=== PATIENT | female | born 1960 | race Caucasian/White ===

== ENCOUNTER 2020-12-20 06:38 | Outpatient (CLI) | payer BC, SELFPAY ==
--- NOTE | 2020-12-20 06:58 | ECHO_ITS ---
Patient Info Name: Sabrina Barrera Age: 60 years : 1960 Gender: Female Ht: 63 in Wt: 292 lbs BSA: 2.51 m2 HR: 95 bpm BP: 116 / 88 mmHg Technical Quality: Good Exam Date: 12/20/2020 7:16 AM Exam Location: [facility] Patient Status: Outpatient Admit Date: 12/20/2020 Staff Ordering Physician: Son Quiñones DO Postal Transportation Clerk: Joe Hyatt RDCS, RT Attending Provider: Son Quiñones DO Referring Physician: Ishmael CORTEZ; Exam Type: CA echo doppler color flow Study Info Indications I48.1 - Persistent atrial fibrillation Complete two-dimensional, color flow and Doppler transthoracic echocardiogram is performed. Strain analysis performed. Summary 1. Complete two-dimensional, color flow and Doppler transthoracic echocardiogram is performed. 2. Left ventricular chamber dimension is mildly enlarged. 3. Left ventricular systolic function is preserved, estimated at 50-55%. 4. The left ventricular diastolic function is normal. 5. E/e' 6 is not elevated. 6. Atrial fibrillation. 7. Left atrial chamber dimension is mildly enlarged. 8. There is mild mitral valve regurgitation. 9. There is mild tricuspid valve regurgitation. 10. No pulmonary hypertension, estimated pulmonary arterial systolic pressure is 21 mmHg. Left Ventricle E/e' 6 is not elevated. Atrial fibrillation. Left ventricular systolic function is preserved, estimated at 50-55%. Left ventricular chamber dimension is mildly enlarged. The left ventricular diastolic function is normal. Right Ventricle Right ventricular systolic function is normal with normal TAPSE 1.7 cm. Right ventricular chamber dimension is normal. Left Atria Left atrial chamber dimension is mildly enlarged. Right Atria Right atrial chamber dimension is normal. Aortic Valve The aortic valve is trileaflet. There is no aortic valve stenosis. There is no aortic valve regurgitation. Pulmonic Valve There is no pulmonic regurgitation. Mitral Valve There is no mitral valve stenosis. There is mild mitral valve regurgitation. Tricuspid Valve There is mild tricuspid valve regurgitation. No pulmonary hypertension, estimated pulmonary arterial systolic pressure is 21 mmHg. Pericardium/Pleural There is no pericardial effusion. Inferior Vena Cava Normal inferior vena cava with >50% collapse upon inspiration consistent with normal right atrial pressure, 5 mmHg. Aorta The aortic root size at the sinus of Valsalva is normal. Left Ventricular Outflow Tract Name Value Normal LVOT 2D LVOT Diameter 2.0 cm LVOT Doppler LVOT Peak Gradient 4 mmHg LVOT Mean Gradient 2 mmHg LVOT VTI 21 cm LVOT VTI/AV VTI Ratio 0.8 LVOT Stroke Volume 64 ml LVOT CO 6.3 l/min LVOT CI 2.5 l/min/m2 Mitral Valve Name Value Normal
== END 2020-12-20 06:39 | disposition home or self-care (01) ==
LOC: ANHCARD 06:45
PROVIDERS: PCP Internal Medicine; Visit Provider Internal Medicine Cardiovascular Disease
DX: I48.91 Unspecified atrial fibrillation (principal); I34.0 Nonrheumatic mitral (valve) insufficiency; I36.1 Nonrheumatic tricuspid (valve) insufficiency
CPT/HCPCS: 93306

== ENCOUNTER 2021-12-13 10:20 | Inpatient (IN) | payer BC, SELFPAY ==
[2021-12-13] VITALS (38 sets, daily range): BP systolic 130–155; BP diastolic 75–89; PULSE 98–133; RESP 16–28; TEMP 36–37.2; O2SAT 85–97; BMI 50.2
--- NOTE | ~2021-12-13 | XR_ITS ---
EXAMINATION: XR chest 2V DATE: 12/13/2021 11:15 INDICATION: Increasing shortness of breath TECHNIQUE: PA and lateral views of the chest are obtained. COMPARISON: None available FINDINGS: There are patchy opacities of the mid and lower lung zones. There appears to be a small nod ular component in the left midlung zone. There is no pleural effusion or pneumothorax. The cardiomedi astinal silhouette is normal. There is moderate thoracic spondylosis. IMPRESSION: 1. Patchy opacities of the mid and lower lung zones, consistent with pneumonia and/or pulmonary edema . Recommend followup radiographs in 10-14 days after appropriate therapy to evaluate for improvement/ resolution. Reviewed, dictated and finalized at location A. IMPRESSION: 1. Patchy opacities of the mid and lower lung zones, consistent with pneumonia and/or pulmonary edema. Recommend followup radiographs in 10-14 days after appr opriate therapy to evaluate for improvement/resolution.
--- NOTE | 2021-12-13 10:27 | ECG_ITS ---
Measurements Intervals [place] Rate: 112 P: AL: 0 QRS: -10 QRSD: 92 T: 77 QT: 319 QTc: 437 Interpretive Statements ATRIAL FIBRILLATION WITH RAPID VENTRICULAR RESPONSE LOW QRS VOLTAGE IN PRECORDIAL LEADS BORDERLINE R WAVE PROGRESSION, ANTERIOR LEADS CONSIDER INFERIOR INFARCT, AGE INDETERMINATE BORDERLINE ST-T WAVE ABNORMALITY- HIGH LATERAL LEADS BASELINE ARTIFACT- I, II, III, AVR, AVL,A VF ABNORMAL ECG Electronically Signed On 12-13-2021 10:38:01 CDT by Son Quiñones D.O.
[2021-12-13] MEDS: IPRATROPIUM BR 0.02% INH SOLN 0.5 MG/2.5 ML VIAL INHALATION ×2 (10:50→20:38)
[2021-12-13] MEDS: ALBUTEROL SULFATE NEB 2.5 MG/3 ML INH 5 MG INHALATION ×2 (10:50→20:38)
[2021-12-13 11:01] LABS: Basophils Absolute Auto 0.1 K/mm3 (0.0-0.1); Basophils Percent Auto 0.4 % (0.2-1.2); Eosinophils Percent Auto 0.3 % (0-4.4); Immature Granulocyte Absolute 0.07 K/mm3 (0.00-0.031); Immature Granulocyte Percent A 0.6 % (0-0.5); Lymphocytes Absolute Auto 1.46 K/mm3 (0.9-3.2); Lymphocytes Percent Auto 12.4 % (18.3-44.2); Mean Corpuscular HGB Conc 33.3 g/dl (32-36); Mean Corpuscular Hemoglobin 30.7 pg (26-34); Mean Corpuscular Volume 92.2 fl (80-100); Mean Platelet Volume 11.6 fl (7.4-10.4); Monocytes Absolute Auto 1.1 K/mm3 (0.1-0.6); Monocytes Percent Auto 9.1 % (2.6-8.5); Neutrophils Absolute Auto 9.1 K/mm3 (1.3-6.7); Neutrophils Percent Auto 77.2 % (45.5-73.1); Platelet Count Result 221 k/mm3 (150-375); Red Blood Count 4.88 M/mm3 (4.2-5.4); Red Cell Distribution Width 14.6 % (11.5-14.5); White Blood Count 11.8 K/mm3 (4.5-10.0)
[2021-12-13 11:16] LABS: Alanine Aminotransferase 28 U/L (6-35); Albumin Level 4.1 g/dL (3.5-5.1); Alkaline Phosphatase 68 U/L (38-126); Anion Gap 9 mmol/L (8-16); Aspartate Amino Transferase 46 U/L (14-36); Bilirubin,Total 0.7 mg/dL (0.2-1.3); Blood Urea Nitrogen 15 mg/dL (7-17); Calcium 8.4 mg/dL (8.4-10.2); Carbon Dioxide 26 mmol/L (22-30); Chloride 96 mmol/L (98-107); Estimated CRCL calculation 78 ml/min; Estimated Glomerular Filt Rate 56; Glucose 173 mg/dL (65-110); Potassium 4.4 mmol/L (3.4-5.0); Sodium 131 mmol/L (137-145)
[2021-12-13 11:22] LABS: NT Pro B Type Natriuretic Pept 971 pg/mL (5-100)
[2021-12-13 11:29] LABS: INR 1.4; Partial Thromboplastin Time 37.9 SECONDS (22.3-36.8); Prothrombin Time 16.6 Seconds (11.1-14.7)
[2021-12-13 11:38] LABS: SARS-CoV-2 RNA PCR Negative
--- NOTE | 2021-12-13 13:22 | ED.SOB ---
HPI - SOB/Dyspnea General Chief Complaint: Shortness of Breath/Dyspnea Stated Complaint: SOB Time Seen by Provider: 12/13/21 10:28 History of Present Illness HPI Narrative: Patient is a 61-year-old female who presents ER with shortness of breath and hypoxia. Patient reports she is recently been taking care of her mother who has pneumonia. Over the weekend she went camping and by the time the week and ended she was extremely short of breath symptoms feel congestion in her chest. No chest pain or chest pressure. Related Data Home Medications Medication Instructions Recorded Confirmed warfarin 3 mg PO DAILY 12/13/21 12/13/21 Allergies Allergy/AdvReac Type Severity Reaction Status Date / Time tetracycline Allergy Unknown Hives Verified 12/13/21 18:57 Review of Systems Review of Systems: All systems reviewed & are unremarkable except as noted in HPI and below Constitutional: Constitutional: Reports chills, Reports fatigue and Reports fever(s) ENT: Denies nasal congestion and Denies sore throat Cardiovascular: Cardiovascular: Denies chest pain, Denies rapid heart rate and Denies radiating jaw, neck or arm pain Respiratory: Respiratory: Reports cough, Reports dyspnea and Reports wheezing Gastrointestinal: Gastrointestinal: Denies abdominal pain, Denies nausea and Denies vomiting Genitourinary: Genitourinary: Denies nocturia and Denies dysuria [facility] Past Medical History Medical History (Updated 12/13/21 @ 19:10 by Mario Mcmullen MD) Atrial fibrillation Dyslipidemia Hypersomnia Hypertension Surgical History Surgical History (Updated 12/13/21 @ 13:23 by Mario Mcmullen MD) History of tonsillectomy Family History Family History (Updated 12/13/21 @ 18:49 by Cheryl Crabtree RN) Mother Family history of malignant neoplasm Father Hypertension Social History Social History Smoking status: Former smoker Smoking end date: 08/06/80 Alcohol intake: never Substance use: never Spiritual care concerns: No Exam Narrative: GENERAL: Well-appearing, obese, and in no acute distress. HEAD: Normocephalic, atraumatic. EYES: PERRL and EOMI. ENT: Mucous membranes moist. CHEST: Coarse Rales worse anterior lung cleary as opposed to posterior. No respiratory distress. HEART: Regular rate and rhythm. Normal peripheral pulses. ABDOMEN: Soft, nontender, nondistended. EXTREMITIES: Normal range of motion. No edema. SKIN: Warm, dry, no rash. NEURO: Alert and oriented x3. PSYCH: Normal mood and affect. Course Course Emergency Course: Patient informed of results. Ceftriaxone azithromycin for antibiotics. Patient was in persistent atrial flutter with RVR associated with receiving some diltiazem. Admit to IMU. Patient's oxygen dependent. Vital Signs Vital signs: Vital Signs Pulse Rate 116 H 12/13/21 10:31 Respiratory Rate 16 12/13/21 10:31 Blood Pressure 130/80 12/13/21 10:31 Pulse Oximetry 95 12/13/21 10:31 Temperature 98.9 F 12/13/21 10:36 Pulse Rate 112 H 12/13/21 18:15 Respiratory Rate 17 12/13/21 18:15 Blood Pressure 155/89 H 12/13/21 18:02 Pulse Oximetry 93 12/13/21 18:02 MDM - SOB/Dyspnea Lab Data Result diagrams: 12/13/21 10:45 12/13/21 10:45 Labs: Lab Results 12/13/21 12/13/21 12/13/21 Range/Units 10:45 10:45 10:45 WBC 11.8 H (4.5-10.0) K/mm3 RBC 4.88 (4.2-5.4) M/mm3 Hgb 15.0 (12.0-15.0) g/dL Hct 45.0 (37.0-47.0) % MCV 92.2 (80-100) fl MCH 30.7 (26-34) pg MCHC 33.3 (32-36) g/dl RDW 14.6 H (11.5-14.5) % Plt Count 221 (150-375) k/mm3 MPV 11.6 H (7.4-10.4) fl Immature Gran % (Auto) 0.6 H (0-0.5) % Neut % (Auto) 77.2 H (45.5-73.1) % Lymph % (Auto) 12.4 L (18.3-44.2) % [place] % (Auto) 9.1 H (2.6-8.5) % Eos % (Auto) 0.3 (0-4.4) % Baso % (Auto) 0.4 (0.2-1.2) % Lymph # (Auto) 1
--- NOTE | 2021-12-13 13:30 | PC.NURSE ---
pt taken of 2l nc. pt desats to 80's. audible wheezing noted. placed again on oxygen. edp aware.
--- NOTE | 2021-12-13 16:34 | PM.IMHP ---
H&P: HPI History of Present Illness Date/Time: Patient requires inpatient monitoring with expected length of stay to exceed 2 midnights for management of care. 12/13/21 16:34 Chief Complaint: Shortness of breath Narrative: Ms. Barrera is a 61-year-old female who presented emergency room with complaints of increasing shortness of breath and cough since Sunday. Patient states that she was taking care of her mother on and Sunday who was diagnosed with pneumonia and then she went camping over the weekend and began having a cough, sinus congestion, and green sputum production. Patient states last evening she had sweating throughout the night, but never checked her temperature. Upon evaluation emergency room patient was noted to have O2 saturations in the 80s on room air. Patient was then placed on oxygen at 2 L per nasal cannula with improvement. Patient denies any chest discomfort, lightheadedness, dizziness, syncopal, or near syncopal episodes. Patient states that her fever is subjective could she never checked her temperature. Patient states her only past medical history is atrial fibrillation. Patient states that she takes diltiazem and Coumadin for her atrial fibrillation. Patient states she has been taking all medications without any difficulty. Patient denies any lung history such as COPD. Review of Systems Review of Systems: A 12 point review of systems was completed patient all pertinent positive and negative per HPI the remainder are unremarkable. [facility] Past Medical History Medical History (Updated 12/13/21 @ 16:39 by Deanna Noble APRN) Atrial fibrillation Dyslipidemia Hypersomnia Hypertension Surgical History Surgical History (Updated 12/13/21 @ 13:23 by Mario Mcmullen MD) History of tonsillectomy Family History Family History Other Family history of malignant neoplasm Hypertension Social History Social History Smoking status: Never smoker Smoking end date: 08/06/80 Alcohol intake: current Meds Home Medications and Allergies Home Medications Medication Instructions Recorded Confirmed Type diltiazem HCl 360 mg capsule,24 360 mg PO DAILY #30 cap 10/18/21 10/18/21 Rx hr,extended release warfarin 3 mg PO DAILY 12/13/21 History Allergies Allergy/AdvReac Type Severity Reaction Status Date / Time tetracycline Allergy Unknown Urticaria Verified 12/13/21 10:39 Vital Signs Vital Signs - 24 hr 12/13/21 10:31 12/13/21 10:32 12/13/21 10:34 Temperature Pulse Rate 116 H 103 H Respiratory Rate 16 24 H Blood Pressure 130/80 136/82 Pulse Oximetry 95 85 L 94 12/13/21 10:35 12/13/21 10:36 12/13/21 10:40 Temperature 37.2 C Pulse Rate 115 H Respiratory Rate Blood Pressure Pulse Oximetry 94 12/13/21 10:50 12/13/21 11:00 12/13/21 11:19 Temperature Pulse Rate 109 H 117 H 122 H Respiratory Rate 23 H 27 H 18 Blood Pressure Pulse Oximetry 96 97 90 12/13/21 11:30 12/13/21 11:45 12/13/21 12:00 Temperature Pulse Rate 133 H 112 H 112 H Respiratory Rate 27 H 17 21 H Blood Pressure Pulse Oximetry 92 94 95 12/13/21 12:26 12/13/21 12:30 Temperature Pulse Rate 107 H 112 H Respiratory Rate 19 23 H Blood Pressure Pulse Oximetry 94 94 Exam Narrative: Constitutional: Patient is a 61-year-old morbidly obese female who is in mild respiratory distress. Patient is alert and oriented x3 HEENT: Moist mucous membranes. No scleral icterus. No lymphadenopathy. Neck: No carotid bruits noted no JVD noted Lungs: Patient's lung sounds are decreased with expiratory wheezes noted throughout.. Cardiovascular: Apical pulse is irregularly irregular and tachycardic with S1 and variable S2, no S3 or S4.. Abdomen: Soft, round, and nontender. No palpable masses. Extremities: No edema. Nontender. Skin: No rashes or
[2021-12-13] MEDS: methylPREDNISolone SOD SUCC 125 MG VIAL IV PUSH (17:03)
[2021-12-13] MEDS: dilTIAZem HCl INJ 25 MG/5 ML VIAL 10 MG IV PUSH (17:03)
[2021-12-13] MEDS: WARFARIN (*PBKC) 5 MG TABLET PO (17:19)
[2021-12-13] MEDS: FUROSEMIDE INJ 40 MG/4 ML VIAL IV PUSH (17:47)
--- NOTE | 2021-12-13 18:45 | ADMGEN ---
This patient, Sabrina Barrera, was admitted to [facility] Surg Room 310-01. Patient/family oriented to hospital policies and general routines including ID bracelet, bed and alarms, visiting hours, pain management, procedures, bathroom and other care routines, personal items, smoking policy, room service/diet, and visiting hours. Information on how to activate the Rapid Response Team has been discussed. Patient/Family are encouraged to report perceived risks to care and to ask questions if they do not understand what they are told or what they should do.
[2021-12-13] MEDS: ACETAMINOPHEN 325 MG TABLET 650 MG PO (20:37)
[2021-12-13 21:00] LABS: INR 1.5; Prothrombin Time 17.5 Seconds (11.1-14.7)
[2021-12-13] MEDS: methylPREDNISolone SOD SUCC 125 MG VIAL 60 MG IV PUSH (23:04)
[2021-12-14] VITALS (15 sets, daily range): BP systolic 111–166; BP diastolic 66–88; PULSE 54–130; RESP 16–20; TEMP 35.8–36.1; O2SAT 90–95
[2021-12-14] MEDS: ALBUTEROL SULFATE NEB 2.5 MG/3 ML INH 5 MG INHALATION ×4 (02:25→19:42)
[2021-12-14] MEDS: IPRATROPIUM BR 0.02% INH SOLN 0.5 MG/2.5 ML VIAL INHALATION ×4 (02:25→19:42)
[2021-12-14] MEDS: methylPREDNISolone SOD SUCC 125 MG VIAL 60 MG IV PUSH ×2 (05:07→12:18)
[2021-12-14 06:39] LABS: INR 1.7; Prothrombin Time 19.8 Seconds (11.1-14.7)
[2021-12-14 06:41] LABS: Basophils Percent Auto 0.2 % (0.2-1.2); Hematocrit 46.2 % (37.0-47.0); Hemoglobin 14.9 g/dL (12.0-15.0); Immature Granulocyte Absolute 0.06 K/mm3 (0.00-0.031); Immature Granulocyte Percent A 0.6 % (0-0.5); Lymphocytes Absolute Auto 0.82 K/mm3 (0.9-3.2); Lymphocytes Percent Auto 8.1 % (18.3-44.2); Mean Corpuscular HGB Conc 32.3 g/dl (32-36); Mean Corpuscular Hemoglobin 30.5 pg (26-34); Mean Corpuscular Volume 94.7 fl (80-100); Mean Platelet Volume 12.4 fl (7.4-10.4); Monocytes Absolute Auto 0.3 K/mm3 (0.1-0.6); Monocytes Percent Auto 2.9 % (2.6-8.5); Neutrophils Absolute Auto 8.9 K/mm3 (1.3-6.7); Neutrophils Percent Auto 88.2 % (45.5-73.1); Platelet Count Result 200 k/mm3 (150-375); Red Blood Count 4.88 M/mm3 (4.2-5.4); Red Cell Distribution Width 14.2 % (11.5-14.5); White Blood Count 10.1 K/mm3 (4.5-10.0)
[2021-12-14 09:07] LABS: Alanine Aminotransferase 33 U/L (6-35); Albumin Level 4.1 g/dL (3.5-5.1); Alkaline Phosphatase 80 U/L (38-126); Aspartate Amino Transferase 44 U/L (14-36); Bilirubin,Total 0.3 mg/dL (0.2-1.3)
[2021-12-14] MEDS: METOPROLOL TARTRATE INJ 5 MG/5 ML VIAL IV PUSH (09:29)
[2021-12-14] MEDS: dilTIAZem HCL CD 180 MG CAP.ER.24H 360 MG PO (09:30)
--- NOTE | 2021-12-14 10:45 | PM.IMPN ---
Progress Note: A&P Assessment and Plan (1) Pneumonia: Code(s): J18.9 - Pneumonia, unspecified organism Status: Acute Assessment and Plan: Chest x-ray does show pneumonia Continue azithromycin and Rocephin Significant wheezing noted on exam nebulizer treatments IV steroids 60mg IV Q6H, decreased to 40mg IV Q4H Supplemental oxygen wean oxygen to keep saturations greater than 93% Sputum culture pending Blood culture pending (2) Hyperglycemia: Code(s): R73.9 - Hyperglycemia, unspecified Status: Acute Assessment and Plan: Blood glucose currently 289 History of hyperglycemia Recently given Novalog in her primary care's office Receiving steroids during hospitalization Accu Chek AC/HS ISS since she is getting Steroids Trend labs (3) Atrial fibrillation: Code(s): I48.91 - Unspecified atrial fibrillation Status: Acute Assessment and Plan: Heart rate elevated EKG showed that Afib RVR One dose of metoprolol IV given Cardizem PO 360mg Q24 hour Continue Coumadin and trend INR Tele monitor Trend HR Adjust therapy as indicated Time Spent With Patient Time with patient: Greater than 35 minutes Subjective Date/time seen: 12/14/211044 Interval history: 12/13/21 16:34 Narrative: Ms. Barrera is a 61-year-old female who presented emergency room with complaints of increasing shortness of breath and cough since Sunday. Patient states that she was taking care of her mother on and Sunday who was diagnosed with pneumonia and then she went camping over the weekend and began having a cough, sinus congestion, and green sputum production. Patient states last evening she had sweating throughout the night, but never checked her temperature. Upon evaluation emergency room patient was noted to have O2 saturations in the 80s on room air. Patient was then placed on oxygen at 2 L per nasal cannula with improvement. Patient denies any chest discomfort, lightheadedness, dizziness, syncopal, or near syncopal episodes. Patient states that her fever is subjective could she never checked her temperature. Patient states her only past medical history is atrial fibrillation. Patient states that she takes diltiazem and Coumadin for her atrial fibrillation. Patient states she has been taking all medications without any difficulty. Patient denies any lung history such as COPD. 12/14/21 1045 Patient stated that she is feel better than she was yesterday. She is still on oxygen. She was also having problems with palpitations and stated that she knew her afib was acting up. She did have a heart rate in the 150s. Gave her one time dose of metoprolol and restarted her Cardizem. She stated that it did help and that she noticed that her heart rate has went back down. She denies and chest pain, shortness of breath, nausea, vomiting, diarrhea. She did state that she is wheezing and has a productive cough. She also stated that her appetite is getting worse, and that she is not eating much. She does get dizzy when she stands up. He main complaint is that she is just really exhausted. Review of Systems Review of Systems: All systems reviewed & are unremarkable except as noted in HPI and below Exam Const: General: cooperative, well developed, alert, awake and acute distress mild and respiratory Nutritional Appearance: well nourished, obese and overweight Orientation/consciousness: oriented to person, oriented to place, oriented to time and patient oriented x3 Limitations: no limitations HENMT: Head: normal to inspection Ears: hearing grossly normal bilaterally General nose exam: Normal external nose present Mouth: Yes Normal oral and palatal mucosa present, Yes lip normal and Yes tongue normal Teeth and gingiva: abnormal tooth and associated gingiva and poor dentition Eyes: General: appearance normal, both eyes and all related struc
[2021-12-14 13:03] LABS: Anion Gap 9 mmol/L (8-16); Blood Urea Nitrogen 14 mg/dL (7-17); Calcium 8.8 mg/dL (8.4-10.2); Carbon Dioxide 29 mmol/L (22-30); Chloride 94 mmol/L (98-107); Estimated CRCL calculation 86 ml/min; Estimated Glomerular Filt Rate > 60; Glucose 289 mg/dL (65-110); Magnesium 2.3 mg/dL (1.6-2.3); Potassium 3.8 mmol/L (3.4-5.0); Sodium 132 mmol/L (137-145)
[2021-12-14] MEDS: FUROSEMIDE INJ 40 MG/4 ML VIAL IV PUSH (14:23)
[2021-12-14 16:42] LABS: Glucose Point of Care 355 mg/dl (65-105)
[2021-12-14] MEDS: INSULIN ASPART (*BKC) 100 UNITS/ML SUB-Q (16:57)
[2021-12-14] MEDS: WARFARIN (*PBKC) 3 MG TABLET PO (16:58)
[2021-12-14] MEDS: methylPREDNISolone SOD SUCC 40 MG VIAL IV PUSH ×2 (16:58→21:38)
[2021-12-14 22:11] LABS: Glucose Point of Care 280 mg/dl (65-105)
[2021-12-14] MEDS: ACETAMINOPHEN 325 MG TABLET 650 MG PO (23:36)
[2021-12-15] VITALS (13 sets, daily range): BP systolic 104–111; BP diastolic 60–67; PULSE 82–100; RESP 16–18; TEMP 35.7–36.6; O2SAT 88–100
[2021-12-15] MEDS: methylPREDNISolone SOD SUCC 40 MG VIAL IV PUSH ×4 (00:15→13:39)
[2021-12-15] MEDS: ALBUTEROL SULFATE NEB 2.5 MG/3 ML INH 5 MG INHALATION ×4 (02:02→20:28)
[2021-12-15] MEDS: IPRATROPIUM BR 0.02% INH SOLN 0.5 MG/2.5 ML VIAL INHALATION ×4 (02:03→20:28)
[2021-12-15 07:12] LABS: INR 2.4; Prothrombin Time 25.5 Seconds (11.1-14.7)
[2021-12-15 07:13] LABS: Basophils Absolute Auto 0.1 K/mm3 (0.0-0.1); Basophils Percent Auto 0.3 % (0.2-1.2); Hematocrit 43.3 % (37.0-47.0); Hemoglobin 14.4 g/dL (12.0-15.0); Immature Granulocyte Absolute 0.12 K/mm3 (0.00-0.031); Immature Granulocyte Percent A 0.7 % (0-0.5); Lymphocytes Absolute Auto 1.42 K/mm3 (0.9-3.2); Lymphocytes Percent Auto 8.4 % (18.3-44.2); Mean Corpuscular HGB Conc 33.3 g/dl (32-36); Mean Corpuscular Hemoglobin 30.3 pg (26-34); Mean Platelet Volume 12.4 fl (7.4-10.4); Monocytes Absolute Auto 0.6 K/mm3 (0.1-0.6); Monocytes Percent Auto 3.8 % (2.6-8.5); Neutrophils Absolute Auto 14.6 K/mm3 (1.3-6.7); Neutrophils Percent Auto 86.8 % (45.5-73.1); Platelet Count Result 247 k/mm3 (150-375); Red Blood Count 4.76 M/mm3 (4.2-5.4); Red Cell Distribution Width 13.9 % (11.5-14.5); White Blood Count 16.8 K/mm3 (4.5-10.0)
[2021-12-15 07:48] LABS: Alanine Aminotransferase 39 U/L (6-35); Albumin Level 3.7 g/dL (3.5-5.1); Alkaline Phosphatase 61 U/L (38-126); Anion Gap 8 mmol/L (8-16); Aspartate Amino Transferase 58 U/L (14-36); Bilirubin,Total 0.7 mg/dL (0.2-1.3); Blood Urea Nitrogen 28 mg/dL (7-17); Calcium 8.5 mg/dL (8.4-10.2); Carbon Dioxide 32 mmol/L (22-30); Chloride 90 mmol/L (98-107); Estimated CRCL calculation 77 ml/min; Estimated Glomerular Filt Rate > 60; Glucose 311 mg/dL (65-110); Magnesium 2.3 mg/dL (1.6-2.3); Potassium 4.3 mmol/L (3.4-5.0); Sodium 130 mmol/L (137-145)
[2021-12-15 08:27] LABS: Glucose Point of Care 313 mg/dl (65-105)
[2021-12-15] MEDS: INSULIN ASPART (*BKC) 100 UNITS/ML SUB-Q ×4 (09:28→22:29)
[2021-12-15] MEDS: dilTIAZem HCL CD 180 MG CAP.ER.24H 360 MG PO (09:29)
--- NOTE | 2021-12-15 10:45 | PM.IMPN ---
Progress Note: A&P Assessment and Plan (1) Pneumonia: Code(s): J18.9 - Pneumonia, unspecified organism Status: Acute Assessment and Plan: Chest x-ray does show pneumonia Continue azithromycin and Rocephin day 2 Significant wheezing noted on exam nebulizer treatments IV steroids stopped Supplemental oxygen, has been weaned to room air wean oxygen to keep saturations greater than 93% Sputum culture Moderate WBCs mixed bacterial bridger for a preliminary Blood culture NGTD Obtained a legionella and pneumococcal since she has been recently camping (2) Hyperglycemia: Code(s): R73.9 - Hyperglycemia, unspecified Status: Acute Assessment and Plan: Blood glucose currently 311 History of hyperglycemia Recently given Novalog in her primary care's office Steroids have been stopped Accu Chek AC/HS ISS still on board Trend labs (3) Atrial fibrillation: Code(s): I48.91 - Unspecified atrial fibrillation Status: Acute Assessment and Plan: Heart rate labile 90-110s EKG showed that Afib RVR Cardizem PO 360mg Q24 hour Continue Coumadin and trend INR Tele monitor Trend HR Adjust therapy as indicated Time Spent With Patient Time with patient: Greater than 35 minutes Subjective Date/time seen: 12/15/21 10:45 Interval history: 12/13/21 16:34 Narrative: Ms. Barrera is a 61-year-old female who presented emergency room with complaints of increasing shortness of breath and cough since Sunday. Patient states that she was taking care of her mother on and Sunday who was diagnosed with pneumonia and then she went camping over the weekend and began having a cough, sinus congestion, and green sputum production. Patient states last evening she had sweating throughout the night, but never checked her temperature. Upon evaluation emergency room patient was noted to have O2 saturations in the 80s on room air. Patient was then placed on oxygen at 2 L per nasal cannula with improvement. Patient denies any chest discomfort, lightheadedness, dizziness, syncopal, or near syncopal episodes. Patient states that her fever is subjective could she never checked her temperature. Patient states her only past medical history is atrial fibrillation. Patient states that she takes diltiazem and Coumadin for her atrial fibrillation. Patient states she has been taking all medications without any difficulty. Patient denies any lung history such as COPD. 12/14/21 1045 Patient stated that she is feel better than she was yesterday. She is still on oxygen. She was also having problems with palpitations and stated that she knew her afib was acting up. She did have a heart rate in the 150s. Gave her one time dose of metoprolol and restarted her Cardizem. She stated that it did help and that she noticed that her heart rate has went back down. She denies and chest pain, shortness of breath, nausea, vomiting, diarrhea. She did state that she is wheezing and has a productive cough. She also stated that her appetite is getting worse, and that she is not eating much. She does get dizzy when she stands up. He main complaint is that she is just really exhausted. 12/15/21 1045 Patient was sitting on the side the bed and said she did get the best sleep she ever had last night. She also still has a cough a and shortness of breath with activity. She did state that she did not have as much sputum as she has. She was also concerned about her glucose as she said last month her A1c was 7.1 she has made some lifestyle modifications and eating better. Talked to the patient about her recent exposure with her mother however she did go camping and was concerned about Legionella and pneumococcal. She denies any chest pain, shortness of breath, nausea, vomiting, diarrhea, constipation, weakness or fatigue. Review of Systems Review of Systems: All systems reviewed & are u
[2021-12-15 12:01] LABS: Glucose Point of Care 320 mg/dl (65-105)
[2021-12-15 16:21] LABS: Glucose Point of Care 360 mg/dl (65-105)
[2021-12-15] MEDS: WARFARIN (*PBKC) 3 MG TABLET PO (17:48)
[2021-12-15] MEDS: ACETAMINOPHEN 325 MG TABLET 650 MG PO (21:10)
[2021-12-15 21:58] LABS: Glucose Point of Care 307 mg/dl (65-105)
[2021-12-16] VITALS (13 sets, daily range): BP systolic 115–139; BP diastolic 65–76; PULSE 80–99; RESP 16–20; TEMP 35.5–36.9; O2SAT 93–97
[2021-12-16] MEDS: IPRATROPIUM BR 0.02% INH SOLN 0.5 MG/2.5 ML VIAL INHALATION ×4 (02:00→20:43)
[2021-12-16] MEDS: ALBUTEROL SULFATE NEB 2.5 MG/3 ML INH 5 MG INHALATION ×4 (02:00→20:42)
[2021-12-16 06:32] LABS: Basophils Percent Auto 0.3 % (0.2-1.2); Hematocrit 44.2 % (37.0-47.0); Hemoglobin 14.7 g/dL (12.0-15.0); Immature Granulocyte Percent A 0.7 % (0-0.5); Lymphocytes Absolute Auto 1.55 K/mm3 (0.9-3.2); Lymphocytes Percent Auto 10.3 % (18.3-44.2); Mean Corpuscular HGB Conc 33.3 g/dl (32-36); Mean Corpuscular Hemoglobin 30.5 pg (26-34); Mean Corpuscular Volume 91.7 fl (80-100); Mean Platelet Volume 12.2 fl (7.4-10.4); Monocytes Absolute Auto 0.9 K/mm3 (0.1-0.6); Monocytes Percent Auto 5.7 % (2.6-8.5); Neutrophils Absolute Auto 12.5 K/mm3 (1.3-6.7); Platelet Count Result 249 k/mm3 (150-375); Red Blood Count 4.82 M/mm3 (4.2-5.4); Red Cell Distribution Width 13.6 % (11.5-14.5)
[2021-12-16 06:47] LABS: Alanine Aminotransferase 41 U/L (6-35); Albumin Level 3.6 g/dL (3.5-5.1); Alkaline Phosphatase 67 U/L (38-126); Anion Gap 6 mmol/L (8-16); Aspartate Amino Transferase 41 U/L (14-36); Bilirubin,Total 0.3 mg/dL (0.2-1.3); Blood Urea Nitrogen 31 mg/dL (7-17); Calcium 8.7 mg/dL (8.4-10.2); Carbon Dioxide 33 mmol/L (22-30); Chloride 92 mmol/L (98-107); Estimated CRCL calculation 86 ml/min; Estimated Glomerular Filt Rate > 60; Glucose 322 mg/dL (65-110); Magnesium 2.5 mg/dL (1.6-2.3); Potassium 4.6 mmol/L (3.4-5.0); Sodium 131 mmol/L (137-145)
[2021-12-16 08:02] LABS: Glucose Point of Care 290 mg/dl (65-105)
[2021-12-16 09:00] LABS: INR 2.8; Prothrombin Time 28.2 Seconds (11.1-14.7)
[2021-12-16] MEDS: dilTIAZem HCL CD 180 MG CAP.ER.24H 360 MG PO (09:25)
[2021-12-16] MEDS: INSULIN ASPART (*BKC) 100 UNITS/ML SUB-Q ×3 (09:26→17:20)
[2021-12-16 11:52] LABS: Glucose Point of Care 305 mg/dl (65-105)
--- NOTE | 2021-12-16 13:58 | PM.IMPN ---
Progress Note: A&P Assessment and Plan (1) Pneumonia: Code(s): J18.9 - Pneumonia, unspecified organism Status: Acute Assessment and Plan: Patient presented with increased shortness of breath CXR on presentation showed patchy opacities of the mid and lower lung zones consistent with pneumonia Continue ceftriaxone azithromycin Currently requiring 2 L supplemental O2 per nasal cannula. Wean oxygen as tolerated with goal O2 sats 92% or above Preliminary sputum culture with growth of normal oropharyngeal bridger Blood cultures pending, negative today COVID negative Influenza pending Urinary Legionella and pneumococcal antigens pending Supportive care. Guaifenesin. Incentive spirometry. Cornet valve. WBC elevated but improved. Remains afebrile. (2) Hyperglycemia: Code(s): R73.9 - Hyperglycemia, unspecified Status: Acute Assessment and Plan: Blood sugars have been elevated during admission. Likely related to IV steroids Blood sugars ranging 300-350 A1c pending Continue accuchecks, sliding scale insulin, and hypoglycemic protocol Add scheduled novolog 7 units TID with meals (3) Atrial fibrillation: Code(s): I48.91 - Unspecified atrial fibrillation Status: Acute Assessment and Plan: Rate is controlled. Continue PO Cardizem Continue warfarin 3 mg daily. INR 2.8. Discontinue telemetry as rate is controlled. Subjective Date/time seen: 12/16/21 13:58 Interval history: Date of service: 12/16/2021 Sabrina Barrera is a 61 year old female with a history of atrial fibrillation anticoagulation, hypertension, hyperlipidemia who is seen in for. She is starting to feel a bit better today. She states she is ?70% improved.? She endorses cough productive of brownish phlegm. She states the breathing treatments are helping and her cough is becoming looser. She does endorse FISH and conversational dyspnea. Sinus congestion has improved. Denies rhinorrhea. Denies wheezing. She denies chest pain, palpitations. She reports she was previously having loose stools and this has resolved. She does endorse decreased appetite. She denies abdominal pain, nausea, vomiting. No urinary symptoms. Review of Systems Review of Systems: All systems reviewed & are unremarkable except as noted in HPI and below Exam Narrative: General: Obese, well-appearing 61-year-old female, standing up in the room doing noah-chi, comfortable, NARD Neuro: awake, alert and oriented x4, speech clear, no focal neuro deficits noted HEENMT: normocephalic, atraumatic, EOMI, sclerae anicteric Respiratory: Diminished breath sounds bilaterally without crackles, rhonchi, or wheezing, nonlabored breathing Cardio: regular rate, irregularly irregular rhythm with S1-S2 Abdomen: nondistended, normoactive bowel sounds, soft, nontender to palpation Extremities: no edema, erythema, or tenderness to palpation, DP pulses 2+ bilaterally Skin: no rashes or lesions, warm and dry Psych: appropriate mood and affect, judgment and insight intact Objective Data Vital Signs Vital Signs: Vital Signs - 24 hr 12/15/21 14:00 12/15/21 14:21 12/15/21 14:34 Temperature 96.3 F L Pulse Rate 100 82 88 Respiratory Rate 18 18 18 Blood Pressure 111/67 Pulse Oximetry 88 L 12/15/21 20:30 12/15/21 20:40 12/15/21 22:00 Temperature 97.9 F Pulse Rate 98 100 98 Respiratory Rate 18 18 16 Blood Pressure 104/60 Pulse Oximetry 94 96 12/16/21 02:02 12/16/21 02:12 12/16/21 06:00 Temperature 98.0 F Pulse Rate 96 99 88 Respiratory Rate 16 16 16 Blood Pressure 115/65 Pulse Oximetry 94 12/16/21 08:05 12/16/21 08:13 12/16/21 09:20 Temperature Pulse Rate 88 87 Respiratory Rate 16 16 Blood Pressure Pulse Oximetry 95 94 12/16/21 13:35 12/16/21 13:44 Temperature Pulse Rate 80 81 Respiratory Rate 16 16 Blood Pressure Pulse Oximetry Intake/Output Intake/Output: Intake & O
[2021-12-16 16:21] LABS: Influenza Control Positive
[2021-12-16 16:34] LABS: Glucose Point of Care 263 mg/dl (65-105)
[2021-12-16] MEDS: WARFARIN (*PBKC) 3 MG TABLET PO (17:20)
[2021-12-16] MEDS: INSULIN ASPART (*BKC) 100 UNITS/ML 7 UNITS SUB-Q (17:20)
[2021-12-16] MEDS: ACETAMINOPHEN 325 MG TABLET 650 MG PO (21:31)
[2021-12-16] MEDS: guaiFENesin 12 HR 600 MG TABCR PO (21:32)
[2021-12-17] VITALS (13 sets, daily range): BP systolic 106–135; BP diastolic 58–76; PULSE 86–101; RESP 16–20; TEMP 35.8–36.7; O2SAT 94–97
[2021-12-17] MEDS: IPRATROPIUM BR 0.02% INH SOLN 0.5 MG/2.5 ML VIAL INHALATION ×4 (02:07→21:00)
[2021-12-17] MEDS: ALBUTEROL SULFATE NEB 2.5 MG/3 ML INH 5 MG INHALATION ×4 (02:07→21:00)
[2021-12-17 08:12] LABS: Glucose Point of Care 247 mg/dl (65-105)
[2021-12-17] MEDS: INSULIN ASPART (*BKC) 100 UNITS/ML 7 UNITS SUB-Q ×3 (09:21→16:42)
[2021-12-17] MEDS: INSULIN ASPART (*BKC) 100 UNITS/ML SUB-Q ×2 (09:21→12:11)
[2021-12-17] MEDS: guaiFENesin 12 HR 600 MG TABCR PO ×2 (09:22→21:25)
[2021-12-17] MEDS: dilTIAZem HCL CD 180 MG CAP.ER.24H 360 MG PO (09:22)
[2021-12-17 09:46] LABS: Hematocrit 49.3 % (37.0-47.0); Hemoglobin 15.5 g/dL (12.0-15.0); Mean Corpuscular HGB Conc 31.4 g/dl (32-36); Mean Corpuscular Hemoglobin 29.9 pg (26-34); Mean Platelet Volume 12.1 fl (7.4-10.4); Platelet Count Result 350 k/mm3 (150-375); Red Blood Count 5.19 M/mm3 (4.2-5.4); Red Cell Distribution Width 13.8 % (11.5-14.5); White Blood Count 16.9 K/mm3 (4.5-10.0)
[2021-12-17 10:15] LABS: Anion Gap 8 mmol/L (8-16); Blood Urea Nitrogen 27 mg/dL (7-17); Calcium 8.7 mg/dL (8.4-10.2); Carbon Dioxide 33 mmol/L (22-30); Chloride 91 mmol/L (98-107); Estimated CRCL calculation 77 ml/min; Estimated Glomerular Filt Rate > 60; Glucose 243 mg/dL (65-110); Potassium 4.5 mmol/L (3.4-5.0); Sodium 132 mmol/L (137-145)
[2021-12-17 11:47] LABS: Glucose Point of Care 208 mg/dl (65-105)
--- NOTE | 2021-12-17 13:49 | PM.IMPN ---
Progress Note: A&P Assessment and Plan (1) Pneumonia: Code(s): J18.9 - Pneumonia, unspecified organism Status: Acute Assessment and Plan: Patient presented with increased shortness of breath CXR on presentation showed patchy opacities of the mid and lower lung zones consistent with pneumonia Continue ceftriaxone and azithromycin Currently requiring 2 L supplemental O2 per nasal cannula, maintaining O2 sats 95% and above. Wean oxygen as tolerated. Goal O2 sats 92% or above Preliminary sputum culture with growth of normal oropharyngeal bridger Blood cultures pending, negative to date COVID negative. Influenza negative Urinary Legionella and pneumococcal antigens pending Supportive care. Guaifenesin. Incentive spirometry. Cornet valve. Slight increase in WBC today to 16.9. May be late effect of IV steroids. Continue to monitor. Patient remains afebrile. (2) Type 2 diabetes mellitus: Code(s): E11.9 - Type 2 diabetes mellitus without complications Status: Acute Assessment and Plan: Blood sugars elevated this admission, felt to be due to IV steroids. A1c evaluated and was elevated at 7.0, consistent with diabetes. Patient reports previous A1c 1 year ago was 7.7 though denies diabetes diagnosis She reports she has been managing with dietary and lifestyle changes. Declines initiation of metformin Would like to follow-up her PCP for further monitoring During admission will continue Accu-Cheks, high-dose sliding scale insulin, hypoglycemic protocol Scheduled NovoLog 7 units t.i.d. with meals Blood sugars improving though still elevated. Consider addition of long-acting insulin if persistently elevated (3) Atrial fibrillation: Code(s): I48.91 - Unspecified atrial fibrillation Status: Acute Assessment and Plan: Rate is controlled. Continue PO Cardizem Continue warfarin 3 mg daily. Monitor INR Subjective Date/time seen: 12/17/21 13:49 Interval history: Date of service: 12/16/2021 Sabrina Barrera is a 61 year old female with a history of atrial fibrillation anticoagulation, hypertension, hyperlipidemia who is seen in follow-up for pneumonia. She is feeling better today. States last night after taking Mucinex she had improvement in her symptoms. She was able to expectorates a significant amount of thick mucus. She states she was ?coughing and hacking? most of the night but now she feels better would her shortness of breath has improved. She is able to tolerate activity in conversation more with less significant dyspnea. Her appetite has improved and she states she was finally able to her meal today. She had a regular bowel movement today. Denies dizziness or lightheadedness. No nausea or vomiting. No urinary symptoms. Sinus congestion has improved. Review of Systems Review of Systems: All systems reviewed & are unremarkable except as noted in HPI and below Exam Narrative: General: Obese, well-appearing 61-year-old female, sitting in a chair by the bedside, comfortable, NARD Neuro: awake, alert and oriented x4, speech clear, no focal neuro deficits noted HEENMT: normocephalic, atraumatic, EOMI, sclerae anicteric Respiratory: Diminished breath sounds with scattered rhonchi, no wheezes, nonlabored breathing Cardio: regular rate, irregularly irregular rhythm with S1-S2 Abdomen: nondistended, normoactive bowel sounds, soft, nontender to palpation Extremities: no edema, erythema, or tenderness to palpation, DP pulses 2+ bilaterally Skin: no rashes or lesions, warm and dry Psych: appropriate mood and affect, judgment and insight intact Objective Data Vital Signs Vital Signs: Vital Signs - 24 hr 12/16/21 14:00 12/16/21 20:45 12/16/21 20:46 Temperature 96 F L Pulse Rate 99 82 Respiratory Rate 16 16 Blood Pressure 129/76 Pulse Oximetry 93 97 12/16/21 20:57 12/16/21 22:00 12/17/21 02:08 Temperature 98.5 F Pulse Rate 83 86 86
[2021-12-17 16:18] LABS: Glucose Point of Care 181 mg/dl (65-105)
[2021-12-17] MEDS: WARFARIN (*PBKC) 3 MG TABLET PO (16:42)
[2021-12-17 23:28] LABS: Glucose Point of Care 135 mg/dl (65-105)
[2021-12-18] VITALS (11 sets, daily range): BP systolic 103–116; BP diastolic 57–77; PULSE 76–132; RESP 18–20; TEMP 36.6; O2SAT 90–97
[2021-12-18] MEDS: ALBUTEROL SULFATE NEB 2.5 MG/3 ML INH 5 MG INHALATION ×2 (02:40→08:30)
[2021-12-18] MEDS: IPRATROPIUM BR 0.02% INH SOLN 0.5 MG/2.5 ML VIAL INHALATION ×2 (02:40→08:29)
[2021-12-18 07:55] LABS: Glucose Point of Care 173 mg/dl (65-105)
[2021-12-18 08:05] LABS: Basophils Percent Auto 0.2 % (0.2-1.2); Eosinophils Absolute Auto 0.1 K/mm3 (0-0.3); Eosinophils Percent Auto 1.1 % (0-4.4); Hematocrit 44.8 % (37.0-47.0); Hemoglobin 14.4 g/dL (12.0-15.0); Immature Granulocyte Absolute 0.09 K/mm3 (0.00-0.031); Immature Granulocyte Percent A 0.8 % (0-0.5); Lymphocytes Absolute Auto 2.84 K/mm3 (0.9-3.2); Lymphocytes Percent Auto 26.6 % (18.3-44.2); Mean Corpuscular HGB Conc 32.1 g/dl (32-36); Mean Corpuscular Hemoglobin 30.1 pg (26-34); Mean Corpuscular Volume 93.7 fl (80-100); Mean Platelet Volume 11.8 fl (7.4-10.4); Monocytes Absolute Auto 1.1 K/mm3 (0.1-0.6); Neutrophils Absolute Auto 6.6 K/mm3 (1.3-6.7); Neutrophils Percent Auto 61.3 % (45.5-73.1); Platelet Count Result 314 k/mm3 (150-375); Red Blood Count 4.78 M/mm3 (4.2-5.4); Red Cell Distribution Width 13.8 % (11.5-14.5); White Blood Count 10.7 K/mm3 (4.5-10.0)
[2021-12-18 08:38] LABS: INR 3.2; Prothrombin Time 31.6 Seconds (11.1-14.7)
[2021-12-18 08:39] LABS: Anion Gap 5 mmol/L (8-16); Blood Urea Nitrogen 21 mg/dL (7-17); Calcium 8.4 mg/dL (8.4-10.2); Carbon Dioxide 34 mmol/L (22-30); Chloride 94 mmol/L (98-107); Estimated CRCL calculation 77 ml/min; Estimated Glomerular Filt Rate > 60; Glucose 173 mg/dL (65-110); Potassium 4.4 mmol/L (3.4-5.0); Sodium 133 mmol/L (137-145)
[2021-12-18] MEDS: dilTIAZem HCL CD 180 MG CAP.ER.24H 360 MG PO (08:52)
[2021-12-18] MEDS: guaiFENesin 12 HR 600 MG TABCR PO (08:52)
[2021-12-18] MEDS: INSULIN ASPART (*BKC) 100 UNITS/ML 7 UNITS SUB-Q ×2 (08:52→12:10)
[2021-12-18 11:36] LABS: Glucose Point of Care 205 mg/dl (65-105)
[2021-12-18] MEDS: INSULIN ASPART (*BKC) 100 UNITS/ML SUB-Q (12:10)
--- NOTE | 2021-12-18 12:20 | P.DS_ITS ---
DS: Admitting Diagnosis Discharge Date 12/18/2021 Admitting Diagnosis Pneumonia DS: Discharge Diagnosis Discharge Diagnosis (1) Pneumonia: Code(s): J18.9 - Pneumonia, unspecified organism Status: Acute Assessment and Plan: Patient presented with increased shortness of breath * CXR on presentation showed patchy opacities of the mid and lower lung zones consistent with pneumonia * Managed with IV ceftriaxone and azithromycin during hospitalization. * Patient completed 5 days of azithromycin * Will continue p.o. cefdinir to complete a total of 7 days of antibiotic therapy * Required up to 2 L supplemental O2 per nasal cannula during admission but was able to be weaned to room air * Home O2 eval performed on 12/18/2021. Patient does not require supplemental oxygen * Sputum culture showed growth of normal oropharyngeal bridger * Preliminary blood cultures negative. Final cultures will be monitored * COVID negative. Influenza negative. Urinary Legionella pneumococcal antigens pending and this will be monitored * Supportive care provided including expectorants, bronchodilators, incentive spirometry, Cornet valve. Continue as needed * Patient was initially treated with IV steroids but this was discontinued as there was no evidence of wheezing. (2) Type 2 diabetes mellitus: Code(s): E11.9 - Type 2 diabetes mellitus without complications Status: Acute Assessment and Plan: Blood sugars elevated during admission, felt to be due to IV steroids. * A1c evaluated and was elevated at 7.0, consistent with diabetes. Patient reports previous A1c 1 year ago was 7.7 though denies diabetes diagnosis. Reports she has been managing with dietary and lifestyle changes. * Declined metformin. Encouraged to follow-up with PCP for further monitoring/consideration of initiating metformin * Hyperglycemia during admission managed with scheduled NovoLog and sliding scale insulin. * Blood sugars improved following cessation of steroids * Encouraged to monitor blood sugars at home and follow-up with PCP in 1 week for monitoring (3) Atrial fibrillation: Code(s): I48.91 - Unspecified atrial fibrillation Status: Acute Assessment and Plan: Rate remained controlled. No issues * Continue PO Cardizem * Continue warfarin 3 mg daily. 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 Most likely due to azithromycin which was completed * Patient instructed to hold warfarin on 12/18. Resume on 12/19 and recheck INR on 12/20 with results to PCP DS: Summary Hospital Course Hospital Course: Date of admission: 12/13/2021 Date of discharge: 12/18/2021 Sabrina Barrera is a 61 year old female with a history of atrial fibrillation on chronic anticoagulation, hypertension, hyperlipidemia who presented to the emergency department on 12/13/2021 with complaints of shortness of breath. She had been caring for her mother who had pneumonia. On presentation, she was mildly tachycardic and was requiring 2 L supplemental O2, CXR showed patchy opacities of the mid and lower lung zones consistent with pneumonia. She was admitted to the hospitalist service for further evaluation and management. Please see above for further details. She had symptomatic improvement with antibiotics and was able to be weaned to room air. She was feeling much
--- NOTE | 2021-12-18 12:20 | PM.DS ---
DS: Admitting Diagnosis Discharge Date 12/18/2021 Admitting Diagnosis Pneumonia DS: Discharge Diagnosis Discharge Diagnosis (1) Pneumonia: Code(s): J18.9 - Pneumonia, unspecified organism Status: Acute Assessment and Plan: Patient presented with increased shortness of breath CXR on presentation showed patchy opacities of the mid and lower lung zones consistent with pneumonia Managed with IV ceftriaxone and azithromycin during hospitalization. Patient completed 5 days of azithromycin Will continue p.o. cefdinir to complete a total of 7 days of antibiotic therapy Required up to 2 L supplemental O2 per nasal cannula during admission but was able to be weaned to room air Home O2 eval performed on 12/18/2021. Patient does not require supplemental oxygen Sputum culture showed growth of normal oropharyngeal bridger Preliminary blood cultures negative. Final cultures will be monitored COVID negative. Influenza negative. Urinary Legionella pneumococcal antigens pending and this will be monitored Supportive care provided including expectorants, bronchodilators, incentive spirometry, Cornet valve. Continue as needed Patient was initially treated with IV steroids but this was discontinued as there was no evidence of wheezing. (2) Type 2 diabetes mellitus: Code(s): E11.9 - Type 2 diabetes mellitus without complications Status: Acute Assessment and Plan: Blood sugars elevated during admission, felt to be due to IV steroids. A1c evaluated and was elevated at 7.0, consistent with diabetes. Patient reports previous A1c 1 year ago was 7.7 though denies diabetes diagnosis. Reports she has been managing with dietary and lifestyle changes. Declined metformin. Encouraged to follow-up with PCP for further monitoring/consideration of initiating metformin Hyperglycemia during admission managed with scheduled NovoLog and sliding scale insulin. Blood sugars improved following cessation of steroids Encouraged to monitor blood sugars at home and follow-up with PCP in 1 week for monitoring (3) Atrial fibrillation: Code(s): I48.91 - Unspecified atrial fibrillation Status: Acute Assessment and Plan: Rate remained controlled. No issues Continue PO Cardizem Continue warfarin 3 mg daily. 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 Most likely due to azithromycin which was completed Patient instructed to hold warfarin on 12/18. Resume on 12/19 and recheck INR on 12/20 with results to PCP DS: Summary Hospital Course Hospital Course: Date of admission: 12/13/2021 Date of discharge: 12/18/2021 Sabrina Barrera is a 61 year old female with a history of atrial fibrillation on chronic anticoagulation, hypertension, hyperlipidemia who presented to the emergency department on 12/13/2021 with complaints of shortness of breath. She had been caring for her mother who had pneumonia. On presentation, she was mildly tachycardic and was requiring 2 L supplemental O2, CXR showed patchy opacities of the mid and lower lung zones consistent with pneumonia. She was admitted to the hospitalist service for further evaluation and management. Please see above for further details. She had symptomatic improvement with antibiotics and was able to be weaned to room air. She was feeling much improved and requested discharge home. Given overall improvement, she was determined to no longer require inpatient care and was discharged in hemodynamically stable condition on 12/18/2021. We discussed worrisome signs and symptoms for which to return and she was educated on her medications. She will follow-up with her primary care provider in 1 week for further monitoring. Status a
[2021-12-18] MEDS: AZITHROMYCIN 250 MG TABLET 500 MG PO (13:10)
[2021-12-19 19:20] LABS: Pneumococcal Antigen Urine Not Detected (Not Detected)
[2021-12-21 17:05] LABS: Legionella pneumophila Ag Ur Not Detected (Not Detected)
== END 2021-12-18 13:22 | disposition home or self-care (01) | DRG 194 ==
LOC: ANHED 10:46 → ANH3MEDSUR 17:15
PROVIDERS: Nurse Practitioner; Nurse Practitioner Adult Health; Admitting Provider Internal Medicine; Emergency Provider Emergency Medicine; PCP Internal Medicine; Visit Provider Physician Assistant
DX: J18.9 Pneumonia, unspecified organism (principal); Z68.43 Body mass index [BMI] 50.0-59.9, adult; I48.20 Chronic atrial fibrillation, unspecified; Z20.822 Contact with and (suspected) exposure to COVID-19; E11.65 Type 2 diabetes mellitus with hyperglycemia; I10 Essential (primary) hypertension; E78.5 Hyperlipidemia, unspecified; R09.02 Hypoxemia; E66.01 Morbid (severe) obesity due to excess calories; Z79.01 Long term (current) use of anticoagulants; Z87.891 Personal history of nicotine dependence
CPT/HCPCS: 36415; 71046; 80048; 80053; 80076; 82948; 83036; 83735; 83880; 85025; 85027; 85610; 85730; 87040; 87070; 87205; 87449; 87804; 87899; 93005; 94618; 94640; 94667; 94668; 96365; 96367; 99285; A9270; C9803; G0378; J0456; J0696; J1815; J1940; J2920; J2930; U0003; U0005

== ENCOUNTER 2023-03-26 08:00 | Outpatient (NON) | payer BC, SELFPAY | END 2023-03-26 08:01 | disposition home or self-care (01) | LOC: ANHLAB 03-28 12:27 | PROVIDERS: PCP Family Medicine; Visit Provider Nurse Practitioner | DX: C44.311 Basal cell carcinoma of skin of nose (principal) | CPT/HCPCS: 88305 ==

== ENCOUNTER 2023-04-23 13:51 | Outpatient (NON) | payer BC, SELFPAY | END 2023-04-23 13:52 | disposition home or self-care (01) | LOC: ANHLAB 13:51 | PROVIDERS: PCP Family Medicine; Visit Provider Nurse Practitioner | DX: C44.311 Basal cell carcinoma of skin of nose (principal) | CPT/HCPCS: 88305; 88331 ==

== ENCOUNTER 2024-12-25 12:21 | Outpatient (CLI) | payer MEDICARE, SELFPAY ==
--- NOTE | 2024-12-25 12:39 | ECHO_ITS ---
Patient Info Name: Sabrina Barrera Age: 64 years : 1960 Gender: Female Ht: 64 in Wt: 299 lbs BSA: 2.56 m2 HR: 81 bpm BP: 117 / 59 mmHg Heart Rhythm: Atrial Fibrillation Technical Quality: Fair Exam Date: 12/25/2024 1:08 PM Patient Status: O Admit Date: 12/25/2024 Exam Type: CA echo doppler color flow Complete two-dimensional, color flow and Doppler transthoracic echocardiogram is performed. Tire Technician: Jocelynn Saez Attending Provider: Son Quiñones DO Summary 1. Complete two-dimensional, color flow and Doppler transthoracic echocardiogram is performed. 2. Left ventricular chamber dimension is normal. 3. Left ventricular systolic function is normal, estimated at 65-70. 4. The left ventricular diastolic function is abnormal. 5. E/e' 10 is mildly elevated. 6. Atrial fibrillation. 7. Right ventricular chamber dimension is mildly enlarged. 8. Left atrial chamber dimension is moderately enlarged. 9. There is trace mitral valve regurgitation. 10. There is no tricuspid valve regurgitation. 11. No pulmonary hypertension, estimated pulmonary arterial systolic pressure is 28 mmHg. Left Ventricle E/e' 10 is mildly elevated. Left ventricular chamber dimension is normal. Left ventricular systolic function is normal, estimated at 65-70. The left ventricular diastolic function is abnormal. Atrial fibrillation. Right Ventricle Right ventricular chamber dimension is mildly enlarged. Right ventricular systolic function is normal and with normal TAPSE 1.8 cm. Left Atria Left atrial chamber dimension is moderately enlarged. Right Atria Right atrial chamber dimension is normal. Aortic Valve The aortic valve is trileaflet. There is no aortic valve stenosis. There is no aortic valve regurgitation. Pulmonic Valve There is no pulmonic regurgitation. Mitral Valve There is no mitral valve stenosis. There is trace mitral valve regurgitation. Tricuspid Valve There is no tricuspid valve regurgitation. No pulmonary hypertension, estimated pulmonary arterial systolic pressure is 28 mmHg. Pericardium/Pleural There is no pericardial effusion. Inferior Vena Cava Normal inferior vena cava with >50% collapse upon inspiration consistent with normal right atrial pressure, 5 mmHg. Aorta The aortic root size at the sinus of Valsalva is normal. Left Ventricular Outflow Tract Name Value Normal LVOT 2D LVOT Diameter 2.0 cm LVOT Doppler LVOT Peak Velocity 110 cm/s LVOT Peak Gradient 4 mmHg LVOT Mean Gradient 2 mmHg LVOT VTI 23 cm LVOT VTI/AV VTI Ratio 1.0 LVOT Stroke Volume 75 ml LVOT CO 6.5 l/min LVOT CI 2.5 l/min/m2 Pulmonic Valve Name Value Normal RVOT Doppler RVOT Peak Velocity 70 cm/s RVOT Peak Gradient 2 mmHg PV Doppler PV Peak Velocity 68 cm/s PV Peak Gradient 2 mmHg Mitral Valve Name Value Normal MV Diastolic Function MV E Peak Velocity 95 cm/s MV A Peak Velocity 1 cm/s MV E/A 182.0 MV Decel Time (PW) 157 ms MV Annular TDI MV E/e' (Septal) 12.0 MV E/e' (Lateral) 11.1 MV E/e' (Average) 11.6 Tricuspid Valve Name Value Normal TV Regurgitation Doppler TR Peak Velocity 241 cm/s TR Peak Gradient 23 mmHg Estimated PAP/RSVP RA Pressure 5 mmHg <=5 PA Systolic Pressure 28 mmHg <36 RV Systolic Pressure 28 mmHg <36 TV Annular TDI TV Lateral Sudha s' Velocity 9.3 cm/s >=9.5 Aortic Valve Name Value Normal AV Doppler AV Peak Velocity 114 cm/s AV Peak Gradient 5 mmHg AV Mean Gradient 3 mmHg AV VTI 23 cm AV Area (Cont Eq VTI) 3.2 cm2 >=3.0 AV Area (Cont Eq Jassi) 3.1 cm2 AV DI (Jassi) 0.96 AV Regurgitation 2D LVOT Area 3.2 cm2 Ventricles Name Value Normal LV Dimensions 2D/MM IVS Diastolic Thickness (2D) 0.9 cm 0.6-1.0 LVID Diastole (2D) 4.4 cm 3.8-5.2 LVIW Diastolic Thickness (2D) 1.0 cm 0.6-0.9 LVID Systole (2D) 2.9 cm 2.2-3.5 LVOT Diameter 2.0 cm LV Mass (2D Cubed) 134.45 g 67.00-162.00 LV Mass Index (2D Cubed) 53 g/m2 43-95 Relative Wall Thickness (2D) 0.44 <=0.42 LV Fractional Shortening/Ejection Fraction 2D/MM LV Fractional Shortening (2D) 33 % 27-45 LV EF (2D Teichholz) 62 % LV Diastolic Volume (4C MOD) 87 ml LV EF (4C MOD) 70 % LV Diastolic Volume (2C MOD) 93 ml LV EF (2C MOD) 67 % LV Diastolic Volume (BP MOD) 93 ml 46-106 LV Diastolic Volume Index (BP MOD) 36 ml/m2 29-61 LV Systolic Volume (BP MOD) 30 ml 14-42 LV Systolic Volume Index (BP MOD) 12 ml/m2 8-24 LV EF (BP MOD) 68 % 54-74 LV Diastolic Length (4C) 6.4 cm LV Systolic Length (4C) 5.0 cm LV Stroke Volume (4C MOD) 61 ml Atria Name Value Normal LA Dimensions LA Volume (4C A-L) 77 ml LA Volume (BP A-L) 73 ml RA Dimensions RA Systolic Major [place] Length (4C) 4.3 cm 2.2-2.8 RA Area (4C) 16.0 cm2 <=18.0 Report Signatures
== END 2024-12-25 12:22 | disposition home or self-care (01) ==
PROVIDERS: PCP Physician Assistant Medical; Visit Provider Internal Medicine Cardiovascular Disease
DX: R93.1 Abnormal findings on diagnostic imaging of heart and coronary circulation (principal); R06.00 Dyspnea, unspecified
CPT/HCPCS: 93306